=== PATIENT | female | born 1980 | race Hispanic/Latino ===

== ENCOUNTER 2017-10-09 10:04 | Inpatient (IN) | payer MEDICAID, OTHER ==
[2017-10-09 10:24] VITALS: BMI 21.4
[2017-10-09 10:48] LABS: BASO % 0.5 % (0.0-2.0); EOS # 0.1 K/uL (0.0-0.7); EOS % 0.9 % (0.0-4.0); HEMOGLOBIN 13.4 g/dL (11.0-16.0); LYMPH # 1.6 K/uL (1.0-4.3); LYMPH % 19.7 % (20.0-40.0); MEAN CELL VOLUME 86.8 fL (81.0-99.0); MEAN CORPUSCULAR HEMOGLOBIN 29.5 pg (27.0-31.0); MEAN PLATELET VOLUME 8.5 fL (7.2-11.7); MONO # 0.4 K/uL (0.0-0.8); MONO % 4.5 % (0.0-10.0); NEUT # 6.2 K/uL (1.8-7.0); NEUT % 74.4 % (50.0-75.0); RBC 4.53 Mil/uL (3.80-5.20); WHITE BLOOD COUNT 8.3 K/uL (4.8-10.8)
[2017-10-09 11:04] LABS: ALB/GLOB RATIO 1.3 (1.0-2.1); ALBUMIN 4.4 g/dL (3.5-5.0); ALT/SGPT 29 U/L (9-52); AST/SGOT 23 U/L (14-36); BLOOD UREA NITROGEN 10 mg/dL (7-17); CALCIUM 9.6 mg/dl (8.6-10.4); GFR NON-AFRICAN AMERICAN > 60
[2017-10-09 11:21] LABS: BARBITURATES, UR NEGATIVE (NEGATIVE); BENZODIAZEPINES, UR NEGATIVE (NEGATIVE); PHENCYCLIDINE, UR NEGATIVE (NEGATIVE)
[2017-10-09 11:28] LABS: URINE BILIRUBIN NEGATIVE (NEGATIVE); URINE BLOOD NEGATIVE (NEGATIVE); URINE CLARITY Hazy (Clear); URINE COLOR Yellow (YELLOW); URINE GLUCOSE (UA) NORMAL (Normal); URINE LEUKOCYTE ESTERASE TRACE Leu/uL (Negative); URINE PROTEIN NEGATIVE (NEGATIVE); URINE UROBILINOGEN NORMAL mg/dL (0.2-1.0)
--- NOTE | 2017-10-09 11:34 | C.PDOC ---
History Of Present Illness 37 yeas old female presents to ED requesting detox from heroin. Patient states last use was yesterday. Patient also reports that she was seen at [facility] for detox, but she was told that she is 3 weeks and cannot be admitted at this facility. Denies pain, bleeding, SI, HI, or alcohol use. Patient admits to intranasal heroin use of 10 or more bags daily, smoking, and crack use. Time Seen by Provider: 10/09/17 10:25 Chief Complaint (Nursing): Substance Abuse History Per: Patient History/Exam Limitations: no limitations Onset/Duration Of Symptoms: Days (1) Current Symptoms Are (Timing): Still Present Suicide/Self Injury Attempted (Context): None Modifying Factor(s): Narcotics, Cocaine Associated Symptoms: denies: Suicidal Thoughts, Suicidal Plan Involuntary Hold By: None Recent travel outside of the [place]: No Past Medical History Reviewed: Historical Data, Nursing Documentation, Vital Signs Vital Signs: Last Vital Signs Temp 97.9 F 10/09/17 12:38 Pulse 60 10/09/17 12:38 Resp 20 10/09/17 12:38 BP 109/69 10/09/17 12:38 Pulse Ox 99 10/09/17 12:38 - Medical History PMH: Anemia Surgical History: No Surg Hx Family History: States: No Known Family Hx - Social History Hx Alcohol Use: No Hx Substance Use: Yes - Immunization History Hx Tetanus Toxoid Vaccination: No Hx Influenza Vaccination: No Hx Pneumococcal Vaccination: No Review Of Systems Constitutional: Negative for: Fever, Chills Gastrointestinal: Negative for: Nausea, Vomiting, Abdominal Pain, Diarrhea Genitourinary: Negative for: Vaginal Bleeding Skin: Negative for: Rash Neurological: Negative for: Weakness, Numbness Psych: Negative for: Suicidal ideation Physical Exam - Physical Exam Appears: Non-toxic, No Acute Distress Skin: Warm, Dry, No Rash Head: Atraumatic, Normacephalic Eye(s): bilateral: Normal Inspection Nose: Normal Oral Mucosa: Moist Teeth: Caries (Multiple ), Other (Poor Dentition ) Neck: Normal ROM Chest: Symmetrical, No Tenderness Cardiovascular: Rhythm Regular, No Murmur Respiratory: Normal Breath Sounds, No Decreased Breath Sounds, No Rales, No Rhonchi, No Wheezing Gastrointestinal/Abdominal: Bowel Sounds (Active ), Soft, No Tenderness, No Guarding Extremity: Bilateral: Atraumatic, Normal Color And Temperature, Normal ROM Neurological/Psych: Oriented x3, Normal Speech, Other (No focal deficits ) Gait: Steady ED Course And Treatment - Laboratory Results Result Diagrams: 10/09/17 10:42 10/09/17 10:42 O2 Sat by Pulse Oximetry: 99 (RA) Pulse Ox Interpretation: Normal Medical Decision Making Medical Decision Making: Patient requesting detox from heroin. Labs ordered for medical clearance Labs reviewed with no acute findings. In my clinical judgment patient is medically cleared and stable for admission. PES contacted for evaluation. 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 - Scribe Statement The provider has reviewed the documentation as recorded by the Scribe Ben Parra All medical record entries made by the Scribe were at my direction and personally dictated by me. I have reviewed the chart and agree that the record accurately reflects my personal performance of the history, physical exam, medical decision making, and the department course for this patient. I have also personally directed, reviewed, and agree with the discharge instructions and disposition. Decision To Admit - Pt Status Changed To: Hospital Disposition Of: Inpatient - Admit Certification Admit to Inpatient:: After my assessment, the patient will require hospitalization for at least two midnights. This is because of the severity of symptoms shown, intensity of services needed, and/or the medical risk in this patient being treated as an outpatient. - InPatient: Physician Admission Certification: I certify that this patient requires 2 or more midnights of care for the following reason:: Patient currently and will need inpatient detox for heroin - . Bed Request Type: Detox Admitting Physician: Maria Zavaleta Patient Diagnosis: Heroin use disorder, severe, Patient currently
[2017-10-09 11:43] LABS: OPIATES, UR POSITIVE (NEGATIVE)
[2017-10-09 11:56] LABS: SQUAMOUS EPITHIAL 5 /hpf (0-5); URINE BACTERIA OCC (<OCC)
--- NOTE | 2017-10-09 12:02 | PCM.BM ---
<Seth Echeverria - Last Filed: 10/09/17 12:00> Treatment Plan Problems - Problems identified on initial assessmt potential for opiate withdrawal Date Initiated: 10/09/17 Time Initiated: 12:01 Status: Active Treatment assets and liabiliti Patient Assests: cooperative, cognitively intact Patient Liabilities: substance abuse, medical problems - Milieu Protocol Maintain good personal hygiene: daily Encourage regular showers, daily Remind patient to perform daily oral care, daily Assist patient to perform ADL's Conduct patient checks and document Observation sheet: Q15 minutes Maintain personal safety: every shift Educate patient to report safety concerns to staff, every shift Monitor environment for contraband/sharps Medication safety: Monitor for expected outcome, potential side effects: every shift, Assess barriers to learning: every shift, Assess readiness for medication education: every shift <Maria Zavaleta - Last Filed: 10/09/17 21:46> - Diagnosis (1) Opioid use disorder, severe, dependence Status: Acute Interventions: 10/09/17 21:46 * Assess 7x/week regarding severity of withdrawal * Educate regarding risks, benefits, side effects and alternatives of medications * Use Motivational Interviewing for abstinence * Use CBT for relapse prevention * Medication management for withdrawal symptoms * Encourage medication assisted treatment *
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
[2017-10-09] MEDS: Prenatal Multivit/Folic Acid/Iron Tab PO SCH (16:17)
[2017-10-09 16:47] VITALS: RESP 18
[2017-10-10] MEDS: Prenatal Multivit/Folic Acid/Iron Tab PO SCH (09:14)
[2017-10-10 12:17] LABS: HEPATITIS B SURFACE AG Negative (NEGATIVE)
[2017-10-10 12:23] LABS: HEPATITIS A IGM NEGATIVE (NEGATIVE); HEPATITIS B CORE AB NEGATIVE (NEGATIVE)
--- NOTE | 2017-10-10 12:24 | US ---
Indication: , severe cramps Comparison: None available. Technique: Real-time transabdominal pelvic ultrasound was performed. In addition a transvaginal pelvic ultrasound was necessary to better depict pelvic anatomy. Findings: The uterus measures approximately 9.4 x 5.0 x 6.3 cm. Anteverted. Cervix length measures approximately 2.6 cm. There is a single intrauterine fetus present. Yolk sac measures approximately 3 mm. The gestational sac measures 1.1 cm and is compatible with a gestational age of 5 weeks 1 day. The crown-rump length measures 0.3 cm and is compatible with a gestational age of 5 weeks 6 days. There is heart motion which measured 91.1 BPM. The right ovary measures 4.4 x 2.6 x 3.5 cm and contains 1.9 x 2.1 x 2.0 cm probable corpus luteal cyst. The left ovary measures 3.6 x 1.8 x 2.8 cm. Flow was demonstrated to both ovaries. Impression: Live single intrauterine with estimated gestational age 5 weeks 1 day by gestational sac calculation and 5 weeks 6 days by crown-rump length calculation. heart rate 91.1 bpm. Advise an anomaly screen at 16-18 weeks gestational age
[2017-10-10 12:34] LABS: HEPATITIS C ANTIBODY NEGATIVE (NEGATIVE)
--- NOTE | 2017-10-10 14:31 | PCM.PYCHPN ---
Psychiatric Progress Note - Psychiatric Progress Note Patient seen today, length of contact: 15 minutes Patient Chief Complaint: "I am having abdominal pain." Problems Identified/Issues Discussed: Pt is seen, chart reviewed, case discussed with staff. Pt is compliant with medications and reports no side-effects. Symptoms are improving but needs more time to stabilize. Pt was having severe abdominal pain this morning and could not get herself off the floor; OB consult was called and ultrasound was done. After care discussed. Medication Change: Yes Medical Record Reviewed: Yes Mental Status Examination - Cognitive Function Orientation: Person, Place, Situation, Time - Mood Mood: Anxious - Affect Affect: Broad - Formal Thought Process Formal Thought Process: No Impairment - Homicidal Ideation Homicidal Ideation: No Goal/Treatment Plan - Goal/Treatment Plan Need for Continued Stay: Discharge may exacerbated symptoms, Failed transitioning Progress Toward Problem(s) and Goals/Treatment Plan: Continue medications. Support and psychoeducation daily Attend groups and activities daily After care planning by PINKY 15 min
--- NOTE | 2017-10-10 15:51 | CP.PCM.CON ---
History of Present Illness - History of Present Illness History of Present Illness: Patient is a 37 year old @ 5 weeks by U/S done on 10/10/2017 who is consulted by OB service for lower abdominal pain that started this morning at 5 am. Patient describes pain as a "in twist and out" pain, described as a sharp pain, that radiates to her back. Patient admits to vomiting 6 times in the morning. Patient admits to having withdrawal symptoms, but denies her abdominal pain is very different from her usual withdrawal symptoms. Patient state her pain felt like contractions. Patient states her abdominal pain leads her to go on a position to find comfort from her pain. Patient states her pain continues but has decreased from a 9/10 to a 4/5 and has not had any nausea or vomiting since the morning. Patient denies fever, chills, shortness of breath, chest pain, diarrhea, constipation, dysuria or hematuria, or swelling or pain in the legs. patient denies vaginal bleeding or malodorous or bloody discharge. Pmhx: denies Shx: appendectomy (2013), multiple abdominal hernia repair Allergies: bee stings (swelling in skin) Meds: none Sochx: admits to smoking 1 pack a day for the past 15 years, admits to drinking one glass of wine with foods occasionally, admits to consuming 10-30 bags of heroins, 50 dollars worth of crack cocaine, 2 joints of marihuana a day Obhx: 2006, 42 weeks, female, 7 lbs, no complications 2006, 38 weeks, female , 8 lbs, no complications 2013, 38 weeks, male, patient went to early labor due to consuming castor oil. 3 miscarriages [facility]: LMP 08/29/2017, Age at menarche: 18, regular cycles (30 days), periods lasting 8 days with heavy vaginal bleeding., admits to STD hisotry of Chlamydia (diagnosed 2014), genital warts ( age 18). Admits to abnormal pap smear at age 18. ROS: as mentioned above Review of Systems - Constitutional Constitutional: absent: Chills, Fever - Cardiovascular Cardiovascular: absent: Chest Pain, Dyspnea, Edema, Leg Edema - Respiratory Respiratory: absent: Dyspnea, Wheezing - Gastrointestinal Gastrointestinal: absent: Constipation, Diarrhea, Nausea, Vomiting - Genitourinary Genitourinary: absent: Dysuria, Hematuria - Reproductive: Female Reproductive:Female: absent: Abnormal Vaginal Bleeding, Vaginal Discharge, Vaginal Odor - Musculoskeletal Musculoskeletal: absent: Back Pain Past Patient History - Past Medical History & Family History Past Medical History?: Yes - Past Social History Smoking Status: Heavy Smoker > 10 Cigarettes Daily - CARDIAC Hx Cardiac Disorders: No Hx Hypertension: No - PULMONARY Hx Tuberculosis: No - NEUROLOGICAL HX Cerebrovascular Accident: No Hx Seizures: No - HEMATOLOGICAL/ONCOLOGICAL Hx Anemia: Yes - MUSCULOSKELETAL/RHEUMATOLOGICAL Hx Falls: No - GENITOURINARY/GYNECOLOGICAL Hx Sexually Transmitted Disorders: No - PSYCHIATRIC Hx Substance Use: Yes - SURGICAL HISTORY Hx Surgeries: No Hx Appendectomy: Yes Other/Comment: hernia repair - ANESTHESIA Hx Anesthesia: Yes Hx Anesthesia Reactions: No Meds Allergies/Adverse Reactions: Allergies Allergy/AdvReac Type Severity Reaction Status Date / Time bee stings Allergy Uncoded 10/09/17 10:23 - Medications Medications: Current Medications Acetaminophen (Tylenol 325mg Tab) 650 mg PO Q6 PRN PRN Reason: Pain, moderate (4-7) Dicyclomine HCl (Bentyl) 10 mg PO Q6H PRN PRN Reason: gastric cramps Diphenhydramine HCl (Benadryl) 25 mg PO Q6 PRN PRN Reason: Anxiety or insomnia Last Admin: 10/09/17 19:32 Dose: 25 mg Methadone HCl (Methadone) 15 mg PO Q24H FELIPA PRN Reason: Taper Stop: 10/14/17 09:59 Last Admin: 10/10/17 09:14 Dose: 15 mg Multivit/Folic Acid/Iron () 1 tab PO DAILY FELIPA Last Admin: 10/10/17 09:14 Dose: 1 tab Physical Exam - Constitutional Appears: Non-toxic, No Acute Distress - Head Exam Head Exam: ATRAUMATIC, NORMAL INSPECTION - Eye Exam Eye Exam: EOMI, Normal appearance - ENT Exam ENT Exam: Normal Exam - Neck Exam Neck exam: Positive for: Normal Inspection - Respiratory Exam Respiratory Exam: Clear to Auscultation Bilateral, NORMAL BREATHING PATTERN. absent: Rales, Rhonchi, Wheezes - Cardiovascular Exam Cardiovascular Exam: REGULAR RHYTHM, +S1, +S2 - GI/Abdominal Exam GI & Abdominal Exam: Normal Bowel Sounds, Soft - Extremities Exam Extremities exam: Positive for: full ROM, normal inspection. Negative for: calf tenderness, tenderness - Back Exam Back exam: NORMAL INSPECTION - Neurological Exam Neurological exam: Alert - Psychiatric Exam Psychiatric exam: Normal Affect Results - Vital Signs Recent Vital Signs: Last Vital Signs Temp 98.6 F 10/10/17 13:00 Pulse 61 10/10/17 13:00 Resp 18 10/10/17 13:00 BP 103/64 10/10/17 13:00 Pulse Ox 96 10/10/17 13:00 - Labs Result Diagrams: 10/09/17 10:42 10/09/17 10:42 Labs: Laboratory Results - last 24 hr 10/10/17 10/10/17 10/10/17 11:25 11:25 11:25 Hepatitis A IgM Ab Negative Hep Bs Antigen Negative Hep B Core IgM Ab Negative Hepatitis C Antibody Negative HIV 1&2 Antibody Screen Negative Blood Type A POSITIVE Antibody Screen Negative Assessment & Plan - Assessment and Plan (Free Text) Plan: Assessment: Abdominal pain with an early R/O IUP vs ectopic positive drug abuse and admitted for detox history of GC/Chlamydia and genital warts practices unprotected sex Plan: STDs ordered - results pending initial blood work panel for initiated - U/A, CBC, type and screen, Rubella screen, BUN, Glucose random, Acute hepatitis panel, HIV 1 and 2 pelvic ultrasound for gestational age - ordered and resulted with 5w1d Intrauterine vitamins, started daily Continue detox treatment as recommended Increase water intake Recommend to f/u for care once discharge Plan discussed with DO Erasto Richmond PGY-1 - Date & Time Date: 10/10/17 Time: 16:23
[2017-10-11] MEDS: Prenatal Multivit/Folic Acid/Iron Tab PO SCH (09:11)
--- NOTE | 2017-10-11 14:12 | PCM.PYCHPN ---
Psychiatric Progress Note - Psychiatric Progress Note Patient seen today, length of contact: 17 min Patient Chief Complaint: "I am much better." Problems Identified/Issues Discussed: The pt is seen, chart reviewed, case discussed with staff. The pt is compliant with medications and reports no side-effects. Symptoms are improving but needs more time to stabilize. Pt attends groups and activities. Support given, psycho-education provided. After care discussed. Medication Change: Yes (detox changes daily - she got an extra dose) Medical Record Reviewed: Yes Mental Status Examination - Cognitive Function Orientation: Person, Place, Situation, Time Memory: Intact Attention: WNL Concentration: Poor Association: WNL Fund of Knowledge: WNL - Mood Mood: Anxious - Affect Affect: Broad - Formal Thought Process Formal Thought Process: No Impairment - Suicidal Ideation Suicidal Ideation: No - Homicidal Ideation Homicidal Ideation: No Goal/Treatment Plan - Goal/Treatment Plan Need for Continued Stay: Discharge may exacerbated symptoms, Severe functional impairment Progress Toward Problem(s) and Goals/Treatment Plan: Continue medications. Support and psychoeducation daily Attend groups and activities daily After care planning by PINKY
[2017-10-12 06:54] VITALS: O2SAT 98
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
[2017-10-12 09:18] VITALS: BP 119/64; PULSE 72; TEMP 98.9
[2017-10-12] MEDS: Prenatal Multivit/Folic Acid/Iron Tab PO SCH (09:39)
== END 2017-10-12 10:35 | disposition home or self-care (01) | DRG 895 ==
LOC: C.ER 10:04 → C.7D 11:33
PROVIDERS: ADMIT Psychiatry & Neurology Psychiatry; ATTEND Psychiatry & Neurology Psychiatry
PROC: HZ2ZZZZ Detoxification Services for Substance Abuse Treatment (ICD-10-PCS; principal; 2017-10-09)
PROC: HZ59ZZZ Individual Psychotherapy for Substance Abuse Treatment, Supportive (ICD-10-PCS; 2017-10-09)
PROC: HZ46ZZZ Group Counseling for Substance Abuse Treatment, Psychoeducation (ICD-10-PCS; 2017-10-09)
PROC: GZ3ZZZZ Medication Management (ICD-10-PCS; 2017-10-09)
DX: F11.23 Opioid dependence with withdrawal (principal); F19.280 Other psychoactive substance dependence with psychoactive substance-induced anxiety disorder; F14.90 Cocaine use, unspecified, uncomplicated; F12.90 Cannabis use, unspecified, uncomplicated; F17.210 Nicotine dependence, cigarettes, uncomplicated; F31.9 Bipolar disorder, unspecified; F43.10 Post-traumatic stress disorder, unspecified; F90.9 Attention-deficit hyperactivity disorder, unspecified type; Z91.5 Personal history of self-harm; Z87.42 Personal history of other diseases of the female genital tract; Z90.49 Acquired absence of other specified parts of digestive tract